=== PATIENT | female | born 1960 | race Caucasian/White ===

== ENCOUNTER 2018-12-22 07:50 | Day surgery (SDC) | payer BC ==
[2018-12-22] MEDS ORDERED: Sodium Chloride 0.9% 1,000 ML IV SCH (08:00)
[2018-12-22] MEDS ORDERED: Sodium Chloride 0.9% 10 ML Syringe FLUSH PRN (08:00)
[2018-12-22] MEDS ORDERED: Metoclopramide 10 MG/2 ML SDV IV PRN (09:00)
[2018-12-22] MEDS ORDERED: Propofol 1,000 MG/100 ML SDV ONE (12:00)
[2018-12-22] MEDS ORDERED: Atropine 0.4 MG/ML SDV ONE (12:00)
[2018-12-22] MEDS ORDERED: Midazolam 1 MG/ML 2 ML SDV ONE (12:00)
--- NOTE | 2018-12-22 12:47 | OR ---
DATE OF OPERATION: 12/22/2018 SURGEON: Tra Canales MD PREOPERATIVE DIAGNOSIS: Screening colonoscopy. POSTOPERATIVE DIAGNOSIS: Screening colonoscopy. PROCEDURE: Colonoscopy. ANESTHESIA: MAC. ESTIMATED BLOOD LOSS: None. COMPLICATIONS: None. INDICATION FOR THE PROCEDURE: The patient is a 58-year-old female who is here today for screening colonoscopy. No previous colonoscopies. Per her reports, did have a younger brother who was diagnosed with possibly colon cancer at age 12 and at age 13. Otherwise, denies any change in bowel habits on her own. DESCRIPTION OF PROCEDURE: Informed consent was obtained with the patient. The patient was taken to operating room, placed on table in left lateral decubitus position. Monitored anesthesia care was administered. Digital rectal exam performed and was normal. Colonoscope then advanced through the anus, directed towards the cecum. Cecum was reached and identified by appendiceal orifice and ileocecal valve. Colonoscope then slowly withdrawn. No areas of ischemia or inflammation. No AV malformations. No polyps. No masses. No diverticula noted. Colonoscope then slowly withdrawn. Rectum was also otherwise unremarkable. Colonoscope then removed. FINDINGS: Normal colonoscopy. RECOMMENDATIONS: Would recommend repeat screening colonoscopy in 10 years. ELE/ALEXIS /[id number]
== END 2018-12-22 13:41 | disposition home or self-care (01) ==
LOC: LB.SDS 07:50
PROVIDERS: ATTEND Surgery
DX: Z12.11 Encounter for screening for malignant neoplasm of colon (principal)
CPT/HCPCS: G0121; J7030

== ENCOUNTER 2019-12-02 12:28 | Emergency (ER) | payer BC, OTHER ==
--- NOTE | 2019-12-02 13:43 | EDM.PDOC ---
ED HPI GENERAL MEDICAL PROBLEM - General Chief Complaint: Upper Extremity Injury/Pain Stated Complaint: face injury Time Seen by Provider: 12/02/19 12:50 Source of Information: Reports: Patient History Limitations: Reports: No Limitations - History of Present Illness INITIAL COMMENTS - FREE TEXT/NARRATIVE: Top of hutch tipped over and hit patient on the right side of head. 3cm laceration to right side of bridge of nose. UTD tetanus. Denies LOC, confusion, blood thinner use, seizure, vomiting or amnesia. 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: Musculoskeletal History: Reports: Other (See Below) Other Musculoskeletal History: foot surgery Social & Family History - Family History Family Medical History: Noncontributory - Caffeine Use Caffeine Use: Reports: Coffee - Recreational Drug Use Recreational Drug Use: No Review of Systems - Review of Systems Review Of Systems: See Below Constitutional: Reports: No Symptoms Eyes: Reports: No Symptoms Ears: Reports: No Symptoms Nose: Reports: Other (3cm laceration right side of bridge of nose) Mouth/Throat: Reports: No Symptoms Respiratory: Reports: No Symptoms Cardiovascular: Reports: No Symptoms GI/Abdominal: Reports: No Symptoms Genitourinary: Reports: No Symptoms Musculoskeletal: Reports: No Symptoms Skin: Reports: Wound Neurological: Reports: No Symptoms Psychiatric: Reports: No Symptoms ED EXAM, GENERAL - Physical Exam Exam: See Below Exam Limited By: No Limitations General Appearance: Alert, No Apparent Distress Eye Exam: Bilateral Eye: PERRL Ears: Normal External Exam Nose: Nasal Tenderness Throat/Mouth: Normal Inspection, Normal Lips, Normal Teeth, Normal Oropharynx Head: Facial Swelling, Facial Tenderness Neck: Normal Inspection, Non-Tender, Full Range of Motion Respiratory/Chest: No Respiratory Distress Cardiovascular: Regular Rate, Rhythm Extremities: Normal Inspection, Normal Range of Motion Neurological: Alert, Oriented, Normal Cognition, Normal Gait, No Motor/Sensory Deficits Psychiatric: Normal Affect, Normal Mood Skin Exam: Warm, Dry ED TRAUMA EXTREMITY PROCEDURES - Laceration/Wound Repair Right Upper Side Nose Lac/Wound Length In cm: 3 Distal NVT: Neuro & Vascular Intact, No Tendon Injury Anesthetic Type: Local Local Anesthesia - Lidocaine (Xylocaine): 1% Plain Local Anesthetic Volume: 2cc Skin Prep: Saline Closed With: Sutures Suture Size: 6-0 # of Sutures: 3 Suture Type: Nylon Course - Vital Signs Last Recorded V/S: Last Vital Signs Temp 97.7 F 12/02/19 12:49 Pulse 87 12/02/19 12:49 Resp 18 12/02/19 12:49 BP 141/76 H 12/02/19 12:49 Pulse Ox Departure - Departure Time of Disposition: 13:49 Disposition: Home, Self-Care 01 Condition: Good Clinical Impression: Laceration - Discharge Information *PRESCRIPTION DRUG MONITORING PROGRAM REVIEWED*: Not Applicable *COPY OF PRESCRIPTION DRUG MONITORING REPORT IN PATIENT RUCHI: Not Applicable Instructions: Head Injury, Adult, Laceration Care, Adult Forms: ED Department Discharge, ED Return to Work/School Form Care Plan Goals: watch for signs of infection. If recurrent repetitive vomiting occurs return to ER immediately. apply ice for 15 min on and off today. Sutures out in 5-7 days. Sepsis Event Note (ED) - Evaluation Sepsis Screening Result: No Definite Risk - Focused Exam Vital Signs: Vital Signs Temp Pulse Resp BP 12/02/19 12:49 97.7 F 87 18 141/76 H - Problem List Review Problem List Initiated/Reviewed/Updated: Yes - Assessment/Plan Assessment:: No LOC, no noted neuro deficits. Patient was negative on Hunt head CT Rule. No langston signs or raccoon eyes. Discussed glue vs. steri strips vs. sutures, she ia aware that there will be a scar.
== END 2019-12-02 13:45 | disposition home or self-care (01) ==
LOC: LB.ED 12:28
DX: S01.21XA Laceration without foreign body of nose, initial encounter (principal); W22.8XXA Striking against or struck by other objects, initial encounter
CPT/HCPCS: 12013; 99282; 99282-25